=== PATIENT | male | born 1985 | race Caucasian/White ===

== ENCOUNTER 2016-10-31 17:30 | Emergency (ER) | payer SELFPAY ==
[2016-10-31 18:08] VITALS: BP 137/60
--- NOTE | 2016-10-31 18:59 | UC ---
UC General HPI - HPI Summary HPI Summary: complaint of rash that started 2.5 weeks ago started on arms then spread to his back and legs sometimes itchy but worse at night denies sore throat, fever and chills tried lamisil, miconazole cream on arms with some relief denies any new soap, cream detergents, medications - History of Current Complaint Chief Complaint: UCSkin Stated Complaint: RASH Time Seen by Provider: 10/31/16 18:51 Hx Obtained From: Patient - Allergy/Home Medications Allergies/Adverse Reactions: Allergies Allergy/AdvReac Type Severity Reaction Status Date / Time Penicillins [PCN] Allergy Intermediate Rash Verified 10/31/16 17:59 Home Medications: Home Medications Metronidazole (Topical) [Metrocream] 1 applic TOPICAL BID PRN 10/31/16 [History Confirmed 10/31/16] Terbinafine [Lamisil Advanced] 1 applic TOPICAL BID PRN 10/31/16 [History Confirmed 10/31/16] PMH/Surg Hx/FS Hx/Imm Hx Previously Healthy: Yes Endocrine History Of: Denies: Diabetes, Thyroid Disease Cardiovascular History Of: Denies: Cardiac Disorders, Hypertension, Pacemaker/ICD Respiratory History Of: Denies: COPD, Asthma GI/ History Of: Denies: Ulcer - Surgical History Surgical History: Yes Surgery Procedure, Year, and Place: ADNOIDS REMOVED - Social History Alcohol Use: Occasionally Substance Use Type: None Smoking Status (MU): Never Smoked Tobacco - Immunization History Most Recent Tetanus Shot: one month ago Review of Systems Constitutional: Negative Skin: Rash Eyes: Negative ENT: Negative Respiratory: Negative Cardiovascular: Negative Gastrointestinal: Negative Genitourinary: Negative Motor: Negative Neurovascular: Negative Musculoskeletal: Negative Neurological: Negative Psychological: Negative All Other Systems Reviewed And Are Negative: Yes Physical Exam Triage Information Reviewed: Yes Appearance: No Pain Distress, Well-Nourished Vital Signs: Initial Vital Signs Temp 98.0 F 10/31/16 18:02 Pulse 81 10/31/16 18:02 Resp 16 10/31/16 18:02 BP 137/60 10/31/16 18:02 Pulse Ox 100 10/31/16 18:02 Vital Signs Reviewed: Yes Eyes: Positive: Conjunctiva Clear ENT: Positive: Pharynx normal, TMs normal Neck: Positive: Supple Respiratory: Positive: Lungs clear, Normal breath sounds, No respiratory distress Cardiovascular: Positive: RRR, No Murmur Abdomen Description: Positive: Nontender, Soft Bowel Sounds: Positive: Present Musculoskeletal: Positive: No Edema Neurological Exam: Normal Psychological Exam: Normal Skin: Positive: Other - areas of flat erythematous patches with raised dedges and clear center on arms legs torso Course/Dx - Differential Dx - Multi-Symptom Differential Diagnoses: Other - cameron contact dernmatitis Provider Diagnoses: tinea Discharge - Discharge Plan Condition: Stable Disposition: HOME Prescriptions: Clotrimazole/Betamethasone* [Lotrisone Cream*] 1 applic TOPICAL BID #1 tube Patient Education Materials: Tinea Corporis (ED) Referrals: [facility] JOE Gonzalez [Primary Care Provider] - [facility] [place] [facility] [Outside] Additional Instructions: Your blood pressure is pre-hypertensive reading. Please contact your primary care provider within 1 day -4 weeks for further evaluation. Start cream as directed Increase fluids and rest Take acetaminophen or ibuprofen for fever or pain Please review your discharge instructions. If your symptoms do not improve please call your primary care provider or return to urgent care
== END 2016-10-31 19:10 | disposition home or self-care (01) ==
LOC: UCEAST 17:30
DX: B35.4 Tinea corporis (principal); Z88.0 Allergy status to penicillin
CPT/HCPCS: 99212; G0463